=== PATIENT | male | born 2000 | race Caucasian/White ===

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

== ENCOUNTER 2021-02-21 18:35 | Observation (INO) | payer MEDICAID ==
[~2021-02-21] VITALS: Ht 177.8 cm; Wt 69.9 kg
[~2021-02-21 18:35] MED LIST: FLEXERIL PO; IBUPROFEN600 MG PO
[2021-02-21] MEDS ORDERED: ACYCLOVIR400 MG PO (19:36)
[2021-02-21 19:47] LABS: IMMATURE GRANULOCYTES 0.3 % (0.0-5.0); MEAN CORPUSCULAR HGB 27.7 pG CALC (26.0-32.0); NEUT# 14.65 thou/uL (1.82-7.42); RED BLOOD COUNT 7.34 mill/uL (4.70-6.10)
[2021-02-21 19:48] LABS: HEMOGLOBIN 20.3 g/dl (14.0-18.0)
[2021-02-21 20:03] LABS: ALKALINE PHOSPHATASE 126 u/l (38-126); AMYLASE 108 u/l (30-110); ANION GAP 29 (6-22 (CALC)); BUN 23 mg/dL (9-20); CARBON DIOXIDE 23 mmol/l (22-30); CHLORIDE 92 mmol/l (95-108); CPK 245 u/l (52-200); ETHYL ALCOHOL 0 mg/dl (0-30); LIPASE 61 u/l (23-300); POTASSIUM 3.9 mmol/l (3.5-5.1); SGOT/AST 35 u/l (17-59); SODIUM 140 mmol/l (137-146)
[2021-02-21 20:16] LABS: ALBUMIN > 6.0 g/dL (3.2-5.0); BUN/CREATININE RATIO 10 (12-20 (CALC)); CREATININE 2.4 mg/dL (0.7-1.3); GFR 34 ML/MIN (>=60 (CALC)); GFR FOR AFR.AMER. 42 ML/MIN (>=60 (CALC)); TOTAL PROTEIN 11.5 g/dL (6.3-8.2)
[2021-02-21 21:17] LABS: URINE BLOOD DIPSTICK TRACE-INTACT (NEGATIVE); URINE GLUCOSE - DIPSTICK NEGATIVE (NEGATIVE); URINE KETONE 15 mg/dL (NEGATIVE); URINE LEUK ESTERASE NEGATIVE (NEGATIVE); URINE PROTEIN - DIPSTICK 100 mg/dL (NEG-TRACE); URINE SPECIFIC GRAVITY >=1.030
[2021-02-21 21:23] LABS: URINE COLOR AMBER; URINE NITRITE - DIPSTICK NEGATIVE (Negative)
[2021-02-21 21:24] LABS: URINE BILIRUBIN - DIPSTICK NEGATIVE (NEGATIVE)
[2021-02-21 21:25] LABS: URINE CALCIUM OXALATE CRYSTALS MANY lpf; URINE MUCUS MODERATE hpf (NONE-FEW)
[2021-02-21 21:26] LABS: URINE AMORPH SEDIMENT MODERATE hpf (NONE-FER)
[2021-02-21 23:31] VITALS: BP 121/69
[2021-02-22 04:00] VITALS: BP 94/48
[2021-02-22 06:08] LABS: MEAN CELL VOLUME 79.6 fL CALC (80.0-100.0); MEAN CORPUSCULAR HGB 27.8 pG CALC (26.0-32.0); MEAN CORPUSCULAR HGB CONC 34.9 g/dL CAL (32.0-36.0); RED BLOOD COUNT 5.54 mill/uL (4.70-6.10)
[2021-02-22 06:15] LABS: HEMATOCRIT 44.1 % (39.0-50.0); HEMOGLOBIN 15.4 g/dl (14.0-18.0)
[2021-02-22 06:18] LABS: BUN 18 mg/dL (9-20); CARBON DIOXIDE 25 mmol/l (22-30); MAGNESIUM 2.5 mg/dL (1.6-2.3); POTASSIUM 4.1 mmol/l (3.5-5.1); SODIUM 138 mmol/l (137-146)
[2021-02-22 06:26] LABS: ANION GAP 13 (6-22 (CALC)); BUN/CREATININE RATIO 18 (12-20 (CALC)); CHLORIDE 104 mmol/l (95-108); GFR > 60 ML/MIN (>=60 (CALC)); GFR FOR AFR.AMER. > 60 ML/MIN (>=60 (CALC))
[2021-02-22 08:00] VITALS: BP 104/46
[2021-02-22 14:18] VITALS: BP 114/55
== END 2021-02-22 14:00 | disposition home or self-care (01) ==
LOC: ED 18:35 → ED-I 21:10 → ED 21:26 → MS2 21:27
PROVIDERS: ADMIT Hospitalist; ATTEND Hospitalist
DX: E86.0 Dehydration (principal); N17.9 Acute kidney failure, unspecified; F17.200 Nicotine dependence, unspecified, uncomplicated; Z23 Encounter for immunization; Z20.822 Contact with and (suspected) exposure to COVID-19
CPT/HCPCS: G0378